=== PATIENT | female | born 1975 ===

== ENCOUNTER 2016-08-16 08:09 | Emergency (ER) | payer MEDICAID ==
[2016-08-16 08:46] LABS: APPEARANCE,URINE Cloudy; BILIRUBIN,URINE 1+ (NEGATIVE); COLOR,URINE Yellow; GLUCOSE, URINE (UA) NEGATIVE (NEGATIVE); KETONES,URINE TRACE (NEGATIVE); LEUKOCYTE ESTERASE ,URINE 2+ (NEGATIVE); NITRATE,URINE NEGATIVE (NEGATIVE); OCCULT BLOOD,URINE 2+ (NEG-TRACE); PH,URINE 5.5
[2016-08-16 08:58] LABS: ICTOTEST,URINE NEGATIVE (NEGATIVE); WBC,URINE 175-225 (0-5AV/HPF)
[2016-08-16 09:14] VITALS: BP 133/88; PULSE 75; RESP 18; TEMP 97.9; O2SAT 97
== END 2016-08-16 09:28 | disposition home or self-care (01) | DRG 690 ==
LOC: ED 08:09
DX: N39.0 Urinary tract infection, site not specified (principal); K64.9 Unspecified hemorrhoids
CPT/HCPCS: 81001; 87088; 99282

== ENCOUNTER 2017-09-29 02:05 | Emergency (ER) | payer BC, MEDICAID ==
[2017-09-29 02:21] VITALS: BP 135/95; PULSE 68; RESP 16; TEMP 97; O2SAT 99
[2017-09-29] MEDS ORDERED: BUPIVACAINE/EPI 0.5% 10 ML SOL INFIL ONE (02:25)
[2017-09-29] MEDS ORDERED: EPINEPHRINE SC ONE (02:30)
[2017-09-29] MEDS ORDERED: MARCAINE 0.5% SC ONE (02:30)
== END 2017-09-29 03:31 | disposition home or self-care (01) ==
LOC: ED 02:05
DX: K08.89 Other specified disorders of teeth and supporting structures (principal); Z72.0 Tobacco use
CPT/HCPCS: 99282